=== PATIENT | male | born 2000 | race Asian ===

== ENCOUNTER 2023-06-03 00:38 | Emergency (ER) | payer SELFPAY ==
[~2023-06-03] VITALS: Ht 180.3 cm; Wt 90.7 kg
[2023-06-03 00:40] VITALS: BP 112/74; PULSE 95; RESP 16; TEMP 97.5; O2SAT 100
[2023-06-03 00:54] VITALS: O2SAT 100
[2023-06-03] MEDS ORDERED: ONDANSETRON 4 MG/2 ML VIAL IVP ONE (00:55)
[2023-06-03] MEDS ORDERED: NACL 0.9% 1,000 ML IV ONE (00:55)
[2023-06-03 01:09] VITALS: PULSE 91
== END 2023-06-03 04:16 | disposition home or self-care (01) ==
LOC: MED 00:38
DX: F10.129 Alcohol abuse with intoxication, unspecified (principal); Y90.9 Presence of alcohol in blood, level not specified
CPT/HCPCS: 96361; 96374; 99283; J2405; J7030